=== PATIENT | female | born 1940 | race Caucasian/White ===

== ENCOUNTER 2018-07-24 15:56 | Emergency (ER) | payer SELFPAY | END 2018-07-24 16:15 | disposition left against medical advice (07) | LOC: FTE 15:56 | DX: Z53.21 Procedure and treatment not carried out due to patient leaving prior to being seen by health care provider (principal) ==

== ENCOUNTER 2018-10-24 19:17 | Emergency (ER) | payer SELFPAY | END 2018-10-24 20:08 | disposition left against medical advice (07) | LOC: E/R 19:17 | DX: Z53.21 Procedure and treatment not carried out due to patient leaving prior to being seen by health care provider (principal) ==